=== PATIENT | male | born 1950 | race African-American/Black ===

== ENCOUNTER 2023-07-28 09:43 | Emergency (ER) | payer OTHER ==
[~2023-07-28] VITALS: Ht 182.9 cm; Wt 73.0 kg
[2023-07-28 09:50] VITALS: O2SAT 100
[2023-07-28] MEDS: DILTIAZEM HCL 5MG/ML 5ML VIAL IV ONE ×2 (10:47→13:45)
[2023-07-28 11:12] LABS: BASOPHILS % 0.4 % (0.0-2.0); DIFFERENTIAL COMMENT 0; EOSINOPHILS % 0.9 % (0.0-5.0); HEMATOCRIT. 40.8 % (42.0-52.0); HEMOGLOBIN. 13.5 g/dL (14.0-18.0); LYMPHOCYTES % 25.8 % (20.0-50.0); MEAN CORPUSCULAR HEMOGLOBIN 29.2 pg (28.0-32.0); MEAN CORPUSCULAR HGB CONC 33.1 g/dL (31.0-37.0); MEAN CORPUSCULAR VOLUME 88.3 fL (80.0-94.0); MEAN PLATELET VOLUME 9.4 fl (7.4-10.4); MONOCYTES % 6.6 % (2.0-8.0); NEUTROPHILS % 66.3 % (40.0-76.0); PLATELET 171 x1000/uL (130-400); RED BLOOD CELL COUNT 4.62 mill/uL (4.7-6.1); RED CELL DISTRIBUTION WIDTH 15.4 % (11.6-14.6); WHITE BLOOD COUNT 4.2 x1000/uL (4.5-11.0)
[2023-07-28 11:23] LABS: PROTHROMBIN TIME 10.8 sec (9.6-11.0)
[2023-07-28 11:43] LABS: ALANINE AMINOTRANSFERASE 30 IU/L (10-49); ALBUMIN 3.7 g/dL (3.2-4.8); ASPARTATE AMINOTRANSFERASE 29 IU/L (<34); BILIRUBIN TOTAL 0.3 mg/dL (0.1-1.0); CALCIUM 8.2 mg/dL (8.7-10.4); CARBON DIOXIDE 27 mEq/L (21-32); CHLORIDE 107 mEq/L (98-107); CREATININE 1.2 mg/dL (0.6-1.3); GLUCOSE 111 mg/dL (70-105); POTASSIUM 3.9 mEq/L (3.5-5.1); PROTEIN TOTAL 5.8 g/dL (6.0-8.3); SODIUM 139 mEq/L (136-145); UREA NITROGEN BLOOD 25 mg/dL (9-23)
[2023-07-28 11:44] LABS: TROPONIN I HIGH SENSITIVITY 8 ng/L (3.0-53)
[2023-07-28] MEDS: DILTIAZEM HCL 30MG TABLET PO ONE (14:26)
[2023-07-28 14:32] VITALS: BP 136/93; PULSE 94; RESP 15; TEMP 98.2
[2023-07-28 14:41] LABS: TROPONIN I HIGH SENSITIVITY 17 ng/L (3.0-53)
== END 2023-07-28 14:51 | disposition short-term general hospital (02) ==
LOC: ER 09:43 → CANBEDREQ 13:39 → ER 14:51
DX: I48.20 Chronic atrial fibrillation, unspecified (principal); F17.200 Nicotine dependence, unspecified, uncomplicated; F12.10 Cannabis abuse, uncomplicated; I10 Essential (primary) hypertension
CPT/HCPCS: 99285; 96374; 71045; 80053; 83880; 85025; 85610; 84484; 36415; 93005; 96376; J3490